=== PATIENT | female | born 1955 | race Caucasian/White ===

== ENCOUNTER 2016-10-22 09:16 | Emergency (ER) | payer SELFPAY ==
[~2016-10-22] VITALS: Ht 167.6 cm; Wt 70.0 kg
[2016-10-22] MEDS ORDERED: KETOROLAC 30MG/ML VIAL IV STA (09:45)
[2016-10-22] MEDS ORDERED: ONDANSETRON HCL 4MG/2ML VIAL IV STA (09:45)
[2016-10-22] MEDS ORDERED: MORPHINE SULFATE 4 MG/ML CPJ (NOT FOR IM USE) IV STA (09:45)
[2016-10-22] MEDS ORDERED: SODIUM CHLORIDE 0.9% 1,000 ML IV ONE (09:45)
[2016-10-22 10:08] LABS: BASOPHILS % 0.6 % (0.0-2.0); EOSINOPHILS % 0.6 % (0.0-5.0); HEMATOCRIT. 38.9 % (36.0-48.0); HEMOGLOBIN. 13.4 g/dL (12.0-16.0); LYMPHOCYTES % 12.9 % (20.0-50.0); MEAN CORPUSCULAR HEMOGLOBIN 29.8 pg (28.0-32.0); MEAN CORPUSCULAR VOLUME 86.6 fL (81.0-99.0); MEAN PLATELET VOLUME 7.4 fl (7.4-10.4); MONOCYTES % 3.7 % (2.0-8.0); NEUTROPHILS % 82.2 % (40.0-76.0); PLATELET 217 x1000/uL (130-400); RED BLOOD CELL COUNT 4.49 mill/uL (4.2-5.4); RED CELL DISTRIBUTION WIDTH 13.1 % (11.6-14.6)
[2016-10-22 10:15] LABS: PROTHROMBIN TIME 10.7 sec
[2016-10-22 10:25] LABS: CARBON DIOXIDE 21 mEq/L (21-32); CHLORIDE 108 mEq/L (98-107); TROPONIN I < 0.02 ng/mL (0.00-0.04)
[2016-10-22 11:23] VITALS: BP 119/71
== END 2016-10-22 11:51 | disposition home or self-care (01) ==
LOC: ER 10:41
DX: N20.0 Calculus of kidney (principal); Z90.710 Acquired absence of both cervix and uterus
CPT/HCPCS: 36415; 74176; 80053; 83690; 83880; 84484; 85025; 85610; 96361; 96374; 96375; 99285; J1885; J2270; J2405; J7030